=== PATIENT | male | born 1995 | race Hispanic/Latino ===

== ENCOUNTER 2021-04-09 22:38 | Emergency (ER) | payer SELFPAY ==
[~2021-04-09] VITALS: Ht 175.3 cm; Wt 111.1 kg
[2021-04-10] MEDS ORDERED: KEFLEX125 MG/5 M PO (00:11)
[2021-04-10 01:09] VITALS: BP 129/70
== END 2021-04-10 01:09 | disposition home or self-care (01) ==
LOC: FSED 22:42
DX: S61.215A Laceration without foreign body of left ring finger without damage to nail, initial encounter (principal); W18.09XA Striking against other object with subsequent fall, initial encounter; Y93.01 Activity, walking, marching and hiking; Y92.008 Other place in unspecified non-institutional (private) residence as the place of occurrence of the external cause
CPT/HCPCS: 99282